=== PATIENT | female | born 1960 | race Caucasian/White ===

== ENCOUNTER 2021-06-09 11:43 | Day surgery (SDC) | payer OTHER ==
[2021-06-03 13:01] LABS: BASOPHILS % (AUTO) 0.8 % (0-1); EOSINOPHILS # (AUTO) 0.2 X10'3 (0-0.9); EOSINOPHILS % (AUTO) 4.1 % (0-6); HEMATOCRIT 38.2 % (35.0-45.0); HEMOGLOBIN 13.1 g/dl (12.0-16.0); LYMPHOCYTES # (AUTO) 1.4 X10'3 (1.1-4.8); LYMPHOCYTES % (AUTO) 30.7 % (21-51); MEAN CORPUSCULAR HEMOGLOBIN 30.6 PG (27.0-31.0); MEAN CORPUSCULAR HGB CONC 34.1 g/dL (33.0-36.5); MEAN CORPUSCULAR VOLUME 89.5 FL (78-98); MEAN PLATELET VOLUME 6.6 FL (7.4-10.4); MONOCYTES # (AUTO) 0.4 X10'3 (0-0.9); MONOCYTES % (AUTO) 9.2 % (2-12); NEUTROPHILS # (AUTO) 2.6 X10'3 (1.8-7.7); NEUTROPHILS % (AUTO) 55.2 % (42-75); PLATELET COUNT 242 X10'3 (140-440); RED BLOOD COUNT 4.27 X10'6 (4.20-5.60); WHITE BLOOD COUNT 4.7 X10'3 (4.5-11.0)
[2021-06-03 13:09] LABS: APTT 25 SECONDS (22-32)
[2021-06-03 13:11] LABS: ALANINE AMINOTRANSFERASE 44 U/L (12-78); ALBUMIN/GLOBULIN RATIO 1.2 (1.1-1.5); ALKALINE PHOSPHATASE 76 IU/L (46-116); ANION GAP 9 (8-16); ASPARTATE AMINO TRANSFERASE 33 U/L (10-37); BILIRUBIN,TOTAL 0.3 MG/DL (0.1-1.0); BLOOD UREA NITROGEN 15 MG/DL (7-18); BUN/CREATININE RATIO 23.1 (6.6-38.0); CHLORIDE 102 MMOL/L (99-107); CREATININE 0.65 MG/DL (0.40-0.90); GLUCOSE 96 MG/DL (70-104); POTASSIUM 3.7 MMOL/L (3.5-5.1); SODIUM 141 MMOL/L (135-145); TOTAL CARBON DIOXIDE 29.6 MMOL/L (24-32); TOTAL PROTEIN 7.3 G/DL (6.4-8.2); eGFR > 90 ML/MIN
[~2021-06-09] VITALS: Ht 172.7 cm; Wt 81.5 kg
[2021-06-09] VITALS (10 sets, daily range): BP systolic 86–120; BP diastolic 56–70
[2021-06-09] MEDS ORDERED: diphenhydrAMINE 25mg capsule PO PRN (12:15)
[2021-06-09] MEDS ORDERED: nitroGLYCERIN 0.4mg SUBLingual tab SL PRN (12:15)
[2021-06-09] MEDS ORDERED: normal saline 1,000 ML IV SCH (12:15)
[2021-06-09] MEDS ORDERED: LORazepam 0.5 MG tablet PO PRN (12:15)
[2021-06-09] MEDS ORDERED: CHOL200074 PO (13:06)
[2021-06-09] MEDS ORDERED: [UNRECOGNIZED DRUG - CODE] PO (13:06)
[2021-06-09] MEDS ORDERED: MULT-1085 PO (13:06)
[2021-06-09] MEDS ORDERED: iohexol 350 MG/ML 50ML vial IV ONE (13:16)
[2021-06-09] MEDS ORDERED: LIDOcaine 1% (10mg/ml)w/preservative injection 20ml MDV ONE (13:16)
[2021-06-09] MEDS ORDERED: fentaNYL/PF 50MCG/1 ML 2ML syringe ONE (13:16)
[2021-06-09] MEDS ORDERED: midazolam 1 mg/ML 2ml injection ONE (13:16)
[2021-06-09] MEDS ORDERED: iohexol 350MG/ML 100ml bottle IV ONE (13:16)
[2021-06-09] MEDS ORDERED: HYDROcodone/acetaminophen 10/325mg tab PO PRN (14:45)
[2021-06-09] MEDS ORDERED: ondansetron/PF 4mg/2ml inj IV PRN (14:45)
[2021-06-09] MEDS ORDERED: proCHLORperazine 10 MG/2 ml inj IV PRN (14:45)
[2021-06-09] MEDS ORDERED: OXAZEpam 15mg capsule PO PRN (14:45)
[2021-06-09] MEDS ORDERED: HYDROcodone/acetaminophen 5mg/325mg tablet PO PRN (14:45)
== END 2021-06-09 19:45 | disposition home or self-care (01) ==
LOC: SSTAY O 11:43
PROVIDERS: ATTEND Internal Medicine Cardiovascular Disease
DX: R94.39 Abnormal result of other cardiovascular function study (principal); I25.10 Atherosclerotic heart disease of native coronary artery without angina pectoris; I42.9 Cardiomyopathy, unspecified; E78.5 Hyperlipidemia, unspecified; Z87.891 Personal history of nicotine dependence; Z79.899 Other long term (current) drug therapy; Z79.01 Long term (current) use of anticoagulants
CPT/HCPCS: 36415; 71046; 80053; 83880; 84484; 85025; 85610; 85730; 93005; 93458; 99152; C1760; C1769; J1644; J2250; J3010; J3490; J7030; Q0163; Q9967; 99153; A4620; A6258